=== PATIENT | male | born 1990 | race Caucasian/White ===

== ENCOUNTER 2022-11-17 17:31 | Emergency (ER) | payer OTHER, SELFPAY ==
[2022-11-17] VITALS (25 sets, daily range): BP systolic 124–151; BP diastolic 79–111; PULSE 71–90; RESP 16; TEMP 36.2; O2SAT 97–99; BMI 25.7
--- NOTE | 2022-11-17 17:49 | ED.CHESTPAIN ---
HPI - Chest Pain General Time Seen by Provider: 17:49 Date Seen: 11/17/22 Chief Complaint: Chest Pain Stated Complaint: Chest Pain that began this afternoon Time Seen by Provider: 11/17/22 17:49 Source: patient, RN notes reviewed and old records reviewed Mode of arrival: ambulatory Limitations: no limitations History of Present Illness HPI narrative: Patient is a very pleasant 32-year-old healthy male who comes to the emergency room with complaints of left anterior chest left shoulder back and neck pain. 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 He states his left shoulder has been bothering for about 3 weeks but he had the sudden onset of increasing pain radiating across his chest into his neck and into his back. He states when he went inside and sat down and actually got worse. He does not think he was short of breath nor has he had a recent cough or congestion. Here in the emergency room he is rating it a 3 to 5/10. He notes that he has some aching when he raises his left arm but he cannot really make the pain go away or or worse at this time. He denies nausea or abdominal pain. He has not had any heart problems in the past and he has no immediate family members with early heart history. He does not smoke. Does not know his cholesterol. Patient notes that his left shoulder has been bothering for approximately 3 weeks any went to the chiropractor. He thought maybe he just slept on it wrong. Related Data Home Medications Medication Instructions Recorded Confirmed No Known Home Medications 11/17/22 11/17/22 Allergies Allergy/AdvReac Type Severity Reaction Status Date / Time No Known Drug Allergies Allergy Verified 11/17/22 17:42 Review of Systems Status of ROS Reports: 10 or more systems reviewed and unremarkable except as noted in History and below Const Denies: fever or chills Eyes Denies: change in vision ENMT Reports: neck pain (Left-sided radiation); Denies: throat pain Cardio Reports: chest pain and other (No history of DVT); Denies: palpitations, edema, swelling of feet/ankles or shortness of breath with exertion Resp Denies: shortness of breath, cough or wheezing GI Denies: abdominal pain, nausea, vomiting or diarrhea Denies: painful urination Musculo Reports: neck pain (Left-sided radiation) Integ/Breast Denies: rash Neuro Denies: headache, numbness in extremities or weakness in extremities Allergy/Immuno Denies: wheezing PFSH PFSH Social History Smoking Status: Never smoker Do you use any of these nicotine containing products: None Second hand tobacco smoke exposure: No How often do you have a drink containing alcohol: 4 or more times a week How many standard drinks containing alcohol do you have on a typical day: 3 or 4 AUDIT-C Alcohol total score: 5 Non-prescribed substance use: denies use Exam Narrative Exam Narrative: Alert and oriented. No acute distress. Ears eyes nose clear. Palpation down cervical spine midline and back without discomfort. Mildly positive Spurling sign with pain at the base of the neck. Did not radiate into the arm. Palpation over left arm does not show any significant tenderness. Upper extremity strength and motor is intact. Abduction against resistance intact and without discomfort. Heart with regular rate and rhythm and no additional heart sounds. Lungs are clear in all lung alberts. Abdomen soft nontender. No pain in the right upper quadrant with palpation. Lower extremities without edema no calf tenderness. Moving all extremities. Const Vital Signs, click to edit/add: Vital Signs - 24 hr 11/17/22 17:42 11/17/22 18:15 11/17/22 18:22 Temperature 97.2 F L Pulse Rate 90 79 Pulse Rate [Pulse Oximeter] 86 Respiratory Rate 16 Blood Pressure 134/85 Blood Pressure [Right Upper Arm] 151/111 H Pulse Oximetry 98 99 98 Oxygen Delivery Method Room Air Room Air 11/17/22 18:23 11/17/22 18:30 11/17/22 18:42 Temperature Pulse Rate 81 84 82 Pulse Rate [Pulse Oximeter] Respiratory Rate Blood Pressure 133/92 H Blood Pressure [Right Upper Arm] Pulse Oximetry 99 97 97 Oxygen Delivery Method Room Air 11/17/22 18:45 11/17/22 19:00 11/17/22 19:02 Temperature Pulse Rate 78 77 80 Pulse Rate [Pulse Oximeter] Respiratory Rate Blood Pressure 132/82 Blood Pressure [Right Upper Arm] Pulse Oximetry 98 98 97 Oxygen Delivery Method 11/17/22 19:15 11/17/22 19:22 11/17/22 19:30 Temperature Pulse Rate 77 75 79 Pulse Rate [Pulse Oximeter] Respiratory Rate Blood Pressure 129/87 Blood Pressure [Right Upper Arm] Pulse Oximetry 97 98 97 Oxygen Delivery Method 11/17/22 19:41 Temperature Pulse Rate 77 Pulse Rate [Pulse Oximeter] Respiratory Rate Blood Pressure 136/79 Blood Pressure [Right Upper Arm] Pulse Oximetry 97 Oxygen Delivery Method Documenting provider has reviewed patient's vital signs: yes Course Course Hospital Course: Differential diagnosis includes but is not limited to rotator cuff tendinitis, acute coronary disease, pericarditis, aortic dissection, musculoskeletal pain. At this time recommend rule out protocol with EKG and troponin x2. Recommend chest x-rays, left shoulder x-ray as well as cardiac monitoring. Will also check CBC, comprehensive panel, CRP, D-dimer. Reevaluation(s) Reevaluation #1: Patient noted to be feeling better after dose of Toradol. His pain is not completely absent but is much improved. His neck is cardiac enzyme is scheduled for 2049 hours along with an EKG. This will be 3 hours after initial troponin. Chest x-ray improved. Vital Signs Vital signs: Initial Vital Signs Respiratory Effort Normal, Spontaneous, Non-Labored 11/17/22 17:31 Respiratory Depth Normal 11/17/22 17:31 Respiratory Pattern Normal 11/17/22 17:31 Vital Signs Temperature 97.2 F L 11/17/22 17:42 Pulse Rate 86 11/17/22 17:42 Respiratory Rate 16 11/17/22 17:42 Blood Pressure 151/111 H 11/17/22 17:42 Pulse Oximetry 98 11/17/22 17:42 Oxygen Delivery Method Room Air 11/17/22 17:42 Temperature 97.2 F L 11/17/22 17:42 Pulse Rate 77 11/17/22 19:41 Respiratory Rate 16 11/17/22 17:42 Blood Pressure 136/79 11/17/22 19:41 Pulse Oximetry 97 11/17/22 19:41 Oxygen Delivery Method Room Air 11/17/22 18:23 MDM - Chest Pain MDM Narrative Medical decision making narrative: 1. Atypical chest pain-initial cardiac enzyme and EKG reassuring. At this time 2nd EKG and cardiac enzyme pending at 0850. I did extend the usual 90 minutes to 3 hours to ensure that this pain is not cardiac in nature. If patient is continue to improve and EKG and cardiac enzyme reassuring will allow patient to be discharged home but would ask that he follow up for an outpatient stress test with his primary MD. 2. Left shoulder pain-suspect rotator cuff tendinitis at this time. Recommend follow-up with primary MD for recheck. 3. Disposition-as patient will be signed out to my partner Dr. Ryan Smith for disposition. Medical Records Data Attestation: I reviewed the patient's medical records. Lab Data Attestation: I reviewed the patient's lab results. Labs: Lab Results 11/17/22 Range/Units 17:50 WBC 7.56 (4.50-11.00) K/uL RBC 5.16 (4.30-5.90) m/uL Hgb 15.8 (13.5-17.5) gm/dL Hct 44.9 (37.0-53.0) % MCV 87 (80-100) fL MCH 31 (26-34) pg MCHC 35 (32-36) gm/dL RDW Coeff of Steph 11.7 (11.5-15.5) % Plt Count 184 (140-440) K/uL Neut % (Auto) 60.2 (42.0-72.0) % Lymph % (Auto) 27.0 (20-44) % [place] % (Auto) 10.7 (0.0-11.0) % Eos % (Auto) 1.9 (0.0-7.0) % Baso % (Auto) 0.1 (0.0-3.0) % Neut # (Auto) 4.55 (1.7-7.0) K/uL Lymph # (Auto) 2.04 (0.90-2.90) K/uL [place] # (Auto) 0.80 (0.00-0.90) K/UL Eos # (Auto) 0.14 (0.00-0.50) K/uL Baso # (Auto) 0.01 (0.00-0.30) K/uL D-Dimer Quant (PE/DVT) < 0.27 (0.00-0.50) ug/ml Sodium 137 (135-149) mmol/L Potassium 3.7 (3.6-5.1) mmol/L Chloride 102 (96-114) mmol/L Carbon Dioxide 27 (20-32) mmol/L BUN 21 (5-24) mg/dL Creatinine 1.0 (0.5-1.5) mg/dL Estimated Creat Clear 121.02 Estimated GFR 101 ml/min Glucose 100 (60-115) mg/dL Calcium 8.9 (8.4-10.6) mg/dL Total Bilirubin 0.4 (0.1-1.5) mg/dL AST 29 (12-35) U/L ALT 44 (4-50) U/L Alkaline Phosphatase 60 (40-150) U/L C-Reactive Protein 0.6 (0.5-1.0) mg/dL Total Protein 7.9 (6.0-8.3) g/dL Albumin 4.8 (3.3-5.0) g/dL POC Troponin I 0.00 L (0.01-0.04) ng/ml Imaging Data Chest x-ray: Attestation: I have reviewed the pertinent imaging results. My impression: No evidence of pneumonia. Radiologist's impression: There is no focal consolidation, effusion, or pneumothorax. The cardiomediastinal silhouette is within normal limits. The bony thorax is grossly intact. Impression: No acute cardiopulmonary abnormality. Left shoulder x-ray: Attestation: I have reviewed the pertinent imaging results. My impression: No evidence of fracture. Radiologist's impression: No acute abnormality ECG Data Attestation: I personally reviewed and interpreted this ECG as follows: ECG interpretation date: 11/17/22 Interpretation: 1. EKG by my read shows sinus rhythm at a rate of 94. T-wave inversion noted in 3 only. Otherwise no abnormalities. Discharge Plan Discharge Clinical Impression: Atypical chest pain, Left shoulder pain Patient Disposition: Home, Self-Care Condition: Improved Additional Instructions: Recommend light activity until you can see your primary MD and be scheduled for outpatient stress test. Ibuprofen or Tylenol may be used for shoulder pain. Primary m.d. will also evaluate this. You may need outpatient MRI or referral to Orthopedics. Seek medical attention if you have recurrence of this chest pain, shortness of breath or worsening symptoms. Prescriptions: No Action No Known Home Medications Follow Up/Referrals: Provider,Not a Local [Primary Care Provider] - Stand Alone Forms: [employer] Info Instructions
--- NOTE | 2022-11-17 17:56 | CRLHL7_ITS ---
For Patients: As a result of the Century Cures Act, medical imaging exams and procedure reports are released immediately into your electronic medical record. You may view this report before your referring provider. If you have questions, please contact your health care provider. Indication: Chest and neck pain Comparison: None available. Technique: PA and lateral views of the chest Findings: There is no focal consolidation, effusion, or pneumothorax. The cardiomediastinal silhouette is within normal limits. The bony thorax is grossly intact. Impression: No acute cardiopulmonary abnormality. Dictated by Andrea Inman MD @ 11/17/2022 6:30:15 PM (Electronically Signed)
--- NOTE | 2022-11-17 17:56 | CRLHL7_ITS ---
For Patients: As a result of the Century Cures Act, medical imaging exams and procedure reports are released immediately into your electronic medical record. You may view this report before your referring provider. If you have questions, please contact your health care provider. Indication: Shoulder pain Comparison: None available. Technique: AP internal, external rotation, and scapular-Y views of the left shoulder were obtained Findings: There is no displaced fracture or dislocation. The joint spaces are grossly preserved. The soft tissues are unremarkable. Impression: No acute osseus abnormality. Dictated by Andrea Inman MD @ 11/17/2022 6:24:02 PM (Electronically Signed)
[2022-11-17 18:09] LABS: Basophils Absolute Auto 0.01 K/uL (0.00-0.30); Basophils Percent Auto 0.1 % (0.0-3.0); Eosinophils Absolute Auto 0.14 K/uL (0.00-0.50); Eosinophils Percent Auto 1.9 % (0.0-7.0); Hematocrit 44.9 % (37.0-53.0); Hemoglobin* 15.8 gm/dL (13.5-17.5); Immature Granulocytes Abs Auto 0.01 K/uL (0.00-0.30); Immature Granulocytes Pct Auto 0.1 %; Lymphocytes Absolute Auto 2.04 K/uL (0.90-2.90); Mean Corpuscular HGB Conc 35 gm/dL (32-36); Mean Corpuscular Hemoglobin 31 pg (26-34); Mean Corpuscular Volume 87 fL (80-100); Monocytes Percent Auto 10.7 % (0.0-11.0); Neutrophils Absolute Auto 4.55 K/uL (1.7-7.0); Neutrophils Percent Auto 60.2 % (42.0-72.0); Platelet Count* 184 K/uL (140-440); RDW Coefficient of Variation % 11.7 % (11.5-15.5); Red Blood Count 5.16 m/uL (4.30-5.90); White Blood Count* 7.56 K/uL (4.50-11.00)
[2022-11-17 18:11] LABS: Slide Review Reflex No
[2022-11-17 18:24] LABS: Albumin* 4.8 g/dL (3.3-5.0); Chloride* 102 mmol/L (96-114)
[2022-11-17 18:25] LABS: Potassium* 3.7 mmol/L (3.6-5.1); Sodium* 137 mmol/L (135-149)
[2022-11-17 18:27] LABS: Bilirubin Total* 0.4 mg/dL (0.1-1.5); Est. Creatinine Clearance* 121.02; Estimated Glomerular Filt Rate 101 ml/min
[2022-11-17 18:28] LABS: Alanine Aminotransferase* 44 U/L (4-50); Alkaline Phosphatase* 60 U/L (40-150); Aspartate Amino Transferase* 29 U/L (12-35); Blood Urea Nitrogen* 21 mg/dL (5-24); Calcium* 8.9 mg/dL (8.4-10.6); Carbon Dioxide* 27 mmol/L (20-32); Glucose* 100 mg/dL (60-115); Total Protein* 7.9 g/dL (6.0-8.3)
[2022-11-17 18:30] LABS: C Reactive Protein* 0.6 mg/dL (0.5-1.0)
[2022-11-17 18:48] LABS: D Dimer Quantitative* < 0.27 ug/ml (0.00-0.50)
[2022-11-17] MEDS: KETOROLAC 15 MG/ML inj IVP (19:04)
[2022-11-17 20:58] LABS: Troponin, Point-of-Care* 0.01 ng/ml (0.01-0.04)
== END 2022-11-17 21:19 | disposition home or self-care (01) ==
PROVIDERS: Emergency Provider Family Medicine
DX: R07.89 Other chest pain (principal); M25.512 Pain in left shoulder
CPT/HCPCS: 36415; 71046; 73030; 80053; 84484; 85025; 85379; 86140; 93005; 96374; 99284; 99285; J1885

== ENCOUNTER 2022-12-18 09:19 | Outpatient (CLI) | payer OTHER, SELFPAY | END 2022-12-18 09:20 | disposition home or self-care (01) | LOC: LONREF 09:22 | PROVIDERS: Visit Provider Family Medicine | DX: Z13.6 Encounter for screening for cardiovascular disorders (principal) | CPT/HCPCS: 80061 ==

== ENCOUNTER 2023-09-13 17:35 | Emergency (ER) | payer OTHER, SELFPAY ==
[2023-09-13] VITALS (18 sets, daily range): BP systolic 125–158; BP diastolic 85–111; PULSE 65–125; RESP 18; TEMP 37; O2SAT 95–97; BMI 26.3
--- NOTE | 2023-09-13 18:20 | XR_ITS ---
Patient: NIRAJ BEAVER Facility:?[facility] Patient ID:?[id number] Site Patient ID:?[id number]. Site :?[id number] Study:?XRay-Chest 2 view-09/13/2023 6:28:15 PM Ordering Physician:?Tierney Hoffman Final Report: INDICATION: Chest pain. TECHNIQUE: Chest radiographs, 2 views. COMPARISON: Chest radiographs 11/17/2022. FINDINGS: Cardiovascular/Mediastinum: Normal heart size. Unremarkable. Lungs: No focal consolidation. Airways: Trachea remains midline. Pleura: No pleural effusions or pneumothorax. Bones: No acute osseous abnormalities. Upper abdomen: Unremarkable. IMPRESSION: No acute cardiopulmonary process. Dictated by Napoleon Waters MD @ 09/13/2023 7:17:43 PM Signed by:?Napoleon Waters MD @09/13/2023 7:17:43 PM (Electronic Signature)
--- NOTE | 2023-09-13 18:37 | ED_ITS ---
HPI - General Adult General Date Seen: 09/13/23 Chief complaint: Chest Pain Stated complaint: chest pain Time Seen by Provider: 09/13/23 18:11 Source: patient, RN notes reviewed and old records reviewed Mode of arrival: ambulatory Limitations: no limitations History of Present Illness HPI narrative: Patient is a 32-year-old, generally healthy man presenting for evaluation of chest pain with onset around 330 today. He says he was just at home when it started, he had let his dogs outside and then he noted that his heart was kind of pounding. He says the knee developed a burning sensation that spread throughout his left chest. He still is a little bit of burning pain and an awareness of his heart beating more prominently. A couple of weeks ago he was seen in clinic for some headaches and chest pain, was noted to be hypertensive and was started at that time on losartan. He did develop some throat swelling and the losartan was switched to metoprolol. He reports that his blood pressure was improved on metoprolol but his heart rate was in the 50s and so that was discontinued and yesterday he was started on amlodipine. He has been checking his blood pressure twice a day at home and when these symptoms started, he checked his blood pressure noted that it was about 180/100. He called the clinic and was advised to come in. He denies any prior cardiac history otherwise. There is no family history of early coronary artery disease, stroke, DVT or PE. He denies any difficulties with fevers, cough, shortness of breath. Has had a little nausea but no vomiting. No leg swelling or pain. He works installing power lines, has a fairly physical job and says that since starting the blood pressure medicines he has had a little more difficulty with work due to all the side effects, but generally has been able to perform his job without difficulty. Does not feel that he has any exercise intolerance. He does not smoke, drinks occasionally. Here today with his . Related Data Home Medications Medication Instructions Recorded Confirmed amlodipine 5 mg tablet 5 mg PO DAILY 09/13/23 09/13/23 cetirizine .ROUTE 09/13/23 omeprazole 20 mg tablet,delayed 20 mg PO DAILY 09/13/23 09/13/23 release Allergies Allergy/AdvReac Type Severity Reaction Status Date / Time losartan Allergy Severe Swelling Verified 09/13/23 17:53 of Lip/Tongue/Throat Review of Systems Status of ROS: Reports: 10 or more systems reviewed and unremarkable except as noted in History and below [facility] Surgical History S/P vasectomy ?Z98.52 - Vasectomy status (ICD-10) H/O umbilical hernia repair ?Z98.890 - Other specified postprocedural states (ICD-10) ?Z87.19 - Personal history of other diseases of the digestive system (ICD-10) S/P left inguinal hernia repair ?Z98.890 - Other specified postprocedural states (ICD-10) ?Z87.19 - Personal history of other diseases of the digestive system (ICD-10) History of third molar tooth extraction ?K08.409 - Partial loss of teeth, unspecified cause, unspecified class (ICD- 10) Social History Smoking Status: Never smoker Do you use any of these nicotine containing products: None Second hand tobacco smoke exposure: No How often do you have a drink containing alcohol: 2-3 times a week How many standard drinks containing alcohol do you have on a typical day: 3 or 4 AUDIT-C Alcohol total score: 4 Non-prescribed substance use: denies use Little interest or pleasure in doing things: not at all Feeling down, depressed, or hopeless: not at all Exam Narrative: Exam Narrative: Vital signs as noted above. In general, an alert, well-appearing patient. Seems a little anxious. Head: Normocephalic, atraumatic. Eyes: Pupils are equal reactive. Extraocular movements are full. Conjunctivae are normal. ENT: Mucous membranes are moist. Neck: Supple without lymphadenopathy. Heart: Mildly tachycardic, regular. No murmur. Lungs: Clear bilaterally. No increased work of breathing, crackles or wheezes. Abdomen: Soft and nontender. No organomegaly. Extremities: Well perfused. No edema. No calf tenderness. Pulses intact. Neurologic: Patient is alert and oriented to person and place. Speech is fluent. Face is symmetric. Moves all extremities equally. Affect: Normal. Skin: Warm and dry. Well perfused. Const: Vital Signs, click to edit/add: Vital Signs - 24 hr 09/13/23 17:49 09/13/23 18:10 09/13/23 18:12 Temperature 98.6 F Pulse Rate 99 95 Pulse Rate [Pulse Oximeter] 125 H Respiratory Rate 18 Blood Pressure 156/98 H Blood Pressure [Ri ght Upper Arm] 158/111 H Pulse Oximetry 97 97 97 Oxygen Delivery Me thod Room Air 09/13/23 18:15 09/13/23 18:30 09/13/23 18:45 Temperature Pulse Rate 115 H 91 93 Pulse Rate [Pulse Oximeter] Respiratory Rate Blood Pressure Blood Pressure [Ri ght Upper Arm] Pulse Oximetry 96 95 96 Oxygen Delivery Me thod 09/13/23 19:00 09/13/23 19:02 09/13/23 19:15 Temperature Pulse Rate 93 90 79 Pulse Rate [Pulse Oximeter] Respiratory Rate Blood Pressure 140/100 H Blood Pressure [Ri ght Upper Arm] Pulse Oximetry 95 96 97 Oxygen Delivery Me thod 09/13/23 19:25 09/13/23 19:30 09/13/23 19:45 Temperature Pulse Rate 82 83 82 Pulse Rate [Pulse Oximeter] Respiratory Rate Blood Pressure 140/90 H Blood Pressure [Ri ght Upper Arm] Pulse Oximetry 96 96 96 Oxygen Delivery Me thod 09/13/23 20:00 09/13/23 20:02 09/13/23 20:15 Temperature Pulse Rate 76 72 75 Pulse Rate [Pulse Oximeter] Respiratory Rate Blood Pressure 129/92 H Blood Pressure [Ri ght Upper Arm] Pulse Oximetry 97 97 96 Oxygen Delivery Me thod 09/13/23 20:30 Temperature Pulse Rate 65 Pulse Rate [Pulse Oximeter] Respiratory Rate Blood Pressure Blood Pressure [Ri ght Upper Arm] Pulse Oximetry 97 Oxygen Delivery Me thod Documenting provider has reviewed patient's vital signs: yes Course Course ED Course: Patient had an EKG on arrival which shows a normal sinus rhythm, ventricular rate of 93. His heart rate was back up into the 110 range when I was in talking to him. No acute ST segment changes. T-waves are unremarkable. Will go ahead and check labs including troponin and D-dimer, chest x-ray by my review is negative, final radiology read is pending. Diagnostic considerations include angina or acute coronary syndrome, pulmonary embolism, pneumothorax, pneumonia, aortic pathology, biliary pathology, gastritis or gastroesophageal reflux, chest wall pain, anxiety. Workup here is unremarkable. Initial troponin is 0.01, repeat troponin at 2 hours. is 0. Chest x-ray by my review is negative, final radiology read is likewise negative. Normal mediastinum, no evidence of pneumothorax, congestive heart failure, pleural effusion, pneumonia. CBC shows a normal white blood cell count of 8.9, hemoglobin is 16.4. D-dimer negative, 0.27. Metabolic panel was normal, LFTs are normal. CRP is less than 0.5, BNP is less than 20. COVID flu and RSV are negative. I have reviewed all this with the patient. Discussed that I do not have an explanation for his chest pain but I do feel that we ruled out dangerous causes. I think it is reasonable to let him go home and follow-up in clinic on the as planned. If he has severe symptoms in the meantime return at any time to the emergency department. He is comfortable with that plan. Continue amlodipine. Vital Signs Vital signs: Initial Vital Signs Temperature 98.6 F 09/13/23 17:49 Temperature Source Temporal Artery Scan 09/13/23 17:49 Pulse Rate 125 H 09/13/23 17:49 Respiratory Rate 18 09/13/23 17:49 Blood Pressure 158/111 H 09/13/23 17:49 Blood Pressure Mean 126 H 09/13/23 17:49 Blood Pressure Position Sitting 09/13/23 17:49 Pulse Oximetry 97 09/13/23 17:49 Oxygen Delivery Method Room Air 09/13/23 17:49 Vital Signs Temperature 98.6 F 09/13/23 17:49 Pulse Rate 125 H 09/13/23 17:49 Respiratory Rate 18 09/13/23 17:49 Blood Pressure 158/111 H 09/13/23 17:49 Pulse Oximetry 97 09/13/23 17:49 Oxygen Delivery Method Room Air 09/13/23 17:49 Temperature 98.6 F 09/13/23 17:49 Pulse Rate 65 09/13/23 20:30 Respiratory Rate 18 09/13/23 17:49 Blood Pressure 129/92 H 09/13/23 20:02 Pulse Oximetry 97 09/13/23 20:30 Oxygen Delivery Method Room Air 09/13/23 17:49 Medical Decision Making Lab Data Labs: Lab Results 09/13/23 09/13/23 09/13/23 Range/Units 18:21 18:35 20:30 WBC 8.88 (4.50-11.00) K/uL RBC 5.52 (4.30-5.90) m/uL Hgb 16.4 (13.5-17.5) gm/dL Hct 47.2 (37.0-53.0) % MCV 86 (80-100) fL MCH 30 (26-34) pg MCHC 35 (32-36) gm/dL RDW Coeff of Steph 12.0 (11.5-15.5) % Plt Count 226 (140-440) K/uL Neut % (Auto) 66.2 (42.0-72.0) % Lymph % (Auto) 20.3 (20-44) % [place] % (Auto) 11.1 H (0.0-11.0) % Eos % (Auto) 1.2 (0.0-7.0) % Baso % (Auto) 0.2 (0.0-3.0) % Neut # (Auto) 5.87 (1.7-7.0) K/uL Lymph # (Auto) 1.80 (0.90-2.90) K/uL [place] # (Auto) 1.00 H (0.00-0.90) K/UL Eos # (Auto) 0.11 (0.00-0.50) K/uL Baso # (Auto) 0.02 (0.00-0.30) K/uL Abs Immat Gran (auto) 0.09 (0.00-0.30) K/uL Imm/Tot Granulo (auto) 1.0 % D-Dimer Quant (PE/DVT) < 0.27 (0.00-0.50) ug/ml Sodium 138 (135-149) mmol/L Potassium 3.9 (3.6-5.1) mmol/L Chloride 102 (96-114) mmol/L Carbon Dioxide 26 (20-32) mmol/L Anion Gap 10 (7-15) mEq/L BUN 21 (5-24) mg/dL Creatinine 0.9 (0.5-1.5) mg/dL Estimated Creat Clear 134.46 Estimated GFR 115 ml/min Glucose 103 (60-115) mg/dL Calcium 9.4 (8.4-10.6) mg/dL Total Bilirubin 0.5 (0.1-1.5) mg/dL Direct Bilirubin 0.3 (0.0-0.5) mg/dL AST 24 (12-35) U/L ALT 44 (4-50) U/L Alkaline Phosphatase 63 (40-150) U/L C-Reactive Protein < 0.5 L (0.5-1.0) mg/dL NT-Pro-B Natriuret Pep < 20 pg/mL Total Protein 8.1 (6.0-8.3) g/dL Albumin 4.8 (3.3-5.0) g/dL SARS-CoV-2 (PCR) Negative SARS-CoV-2 (Negative) Influenza Type A (PCR) Negative PCR FLU A (Negative) Influenza Type B (PCR) Negative PCR FLU B (Negative) RSV (PCR) Negative PCR RSV (Negative) POC Troponin I 0.01 0.00 L (0.01-0.04) ng/ml Discharge Plan Discharge Clinical Impression: Atypical chest pain Patient Disposition: Home, Self-Care Condition: Stable Instructions: Chest Pain (DC) Additional Instructions: Follow up in clinic as planned, continue Amlodipine. Return to the ER for severe symptoms, new symptoms such as vomiting, fever, shortness of breath. Evaluation tonight does not show anything suggesting a dangerous cause for your chest pain such as heart attack, blood clot, or heart failure. Prescriptions: No Action amlodipine 5 mg tablet 5 mg PO DAILY cetirizine [Zyrtec] .ROUTE omeprazole 20 mg tablet,delayed release (DR/EC) 20 mg PO DAILY Follow Up/Referrals: Lakeisha Garcia DO [Primary Care Provider] - Stand Alone Forms: [employer] Info Instructions
[2023-09-13 18:44] LABS: Basophils Absolute Auto 0.02 K/uL (0.00-0.30); Basophils Percent Auto 0.2 % (0.0-3.0); Eosinophils Absolute Auto 0.11 K/uL (0.00-0.50); Eosinophils Percent Auto 1.2 % (0.0-7.0); Hematocrit 47.2 % (37.0-53.0); Hemoglobin* 16.4 gm/dL (13.5-17.5); Immature Granulocytes Abs Auto 0.09 K/uL (0.00-0.30); Lymphocytes Percent Auto 20.3 % (20-44); Mean Corpuscular HGB Conc 35 gm/dL (32-36); Mean Corpuscular Hemoglobin 30 pg (26-34); Mean Corpuscular Volume 86 fL (80-100); Monocytes Percent Auto 11.1 % (0.0-11.0); Neutrophils Absolute Auto 5.87 K/uL (1.7-7.0); Neutrophils Percent Auto 66.2 % (42.0-72.0); Platelet Count* 226 K/uL (140-440); Red Blood Count 5.52 m/uL (4.30-5.90); White Blood Count* 8.88 K/uL (4.50-11.00)
[2023-09-13 18:46] LABS: Slide Review Reflex No
[2023-09-13 18:48] LABS: Troponin, Point-of-Care* 0.01 ng/ml (0.01-0.04)
[2023-09-13 18:56] LABS: Albumin* 4.8 g/dL (3.3-5.0); Chloride* 102 mmol/L (96-114); Sodium* 138 mmol/L (135-149)
[2023-09-13 18:57] LABS: Potassium* 3.9 mmol/L (3.6-5.1)
[2023-09-13 18:59] LABS: Creatinine* 0.9 mg/dL (0.5-1.5); Est. Creatinine Clearance* 134.46; Estimated Glomerular Filt Rate 115 ml/min
[2023-09-13 19:00] LABS: Alanine Aminotransferase* 44 U/L (4-50); Alkaline Phosphatase* 63 U/L (40-150); Anion Gap 10 mEq/L (7-15); Aspartate Amino Transferase* 24 U/L (12-35); Bilirubin Direct* 0.3 mg/dL (0.0-0.5); Bilirubin Total* 0.5 mg/dL (0.1-1.5); Blood Urea Nitrogen* 21 mg/dL (5-24); Calcium* 9.4 mg/dL (8.4-10.6); Carbon Dioxide* 26 mmol/L (20-32); Glucose* 103 mg/dL (60-115); Total Protein* 8.1 g/dL (6.0-8.3)
[2023-09-13 19:10] LABS: C Reactive Protein* < 0.5 mg/dL (0.5-1.0); NT Pro B Type NatriureticPept* < 20 pg/mL
[2023-09-13 19:14] LABS: D Dimer Quantitative* < 0.27 ug/ml (0.00-0.50)
[2023-09-13 19:21] LABS: PCR FLU A Negative PCR FLU A (Negative); PCR FLU B Negative PCR FLU B (Negative); PCR RSV Negative PCR RSV (Negative); SARS PCR* Negative SARS-CoV-2 (Negative)
== END 2023-09-13 21:01 | disposition home or self-care (01) ==
PROVIDERS: Emergency Provider Emergency Medicine; PCP Family Medicine
DX: R07.89 Other chest pain (principal)
CPT/HCPCS: 36415; 71046; 80048; 80076; 83880; 84484; 85025; 85379; 86140; 87631; 93005; 94761; 99284; 99285

== ENCOUNTER 2024-05-18 10:35 | Outpatient (CLI) | payer OTHER, SELFPAY ==
--- NOTE | 2024-05-18 10:45 | CRLHL7_ITS ---
For Patients: As a result of the Century Cures Act, medical imaging exams and procedure reports are released immediately into your electronic medical record. You may view this report before your referring provider. If you have questions, please contact your health care provider. INDICATION: Hypertension TECHNIQUE: Grayscale, color Doppler and power Doppler ultrasound evaluation of the kidneys and renal arteries performed. COMPARISON: None available FINDINGS: BILATERAL RENAL ARTERY DUPLEX ULTRASOUND ABDOMINAL AORTA: Peak systolic velocity = 105 cm/s. No aortic aneurysm. RIGHT KIDNEY: 11.5 cm in length. There is no hydronephrosis. Peak systolic velocity = 158 cm/second Renal artery to aortic peak systolic velocity ratio = 1.5 Resistive indices: Less than 0.6 Renal vein = patent LEFT KIDNEY: 12.0 cm in length. There is no hydronephrosis. Peak systolic velocity = 140 cm/second Renal artery to aortic peak systolic velocity ratio = 1.3 Resistive indices: Less than 0.6 Renal vein = patent IMPRESSION: No evidence of significant renal artery stenosis. Dictated by Ryan Khanna MD @ 05/18/2024 12:18:11 PM (Electronically Signed)
== END 2024-05-18 10:36 | disposition home or self-care (01) ==
PROVIDERS: PCP Family Medicine; Visit Provider Family Medicine
DX: I10 Essential (primary) hypertension (principal); I11.0 Hypertensive heart disease with heart failure
CPT/HCPCS: 76775; 93975